=== PATIENT | male | born 1995 | race Caucasian/White ===

== ENCOUNTER 2025-03-14 18:28 | Emergency (ER) | payer OTHER, SELFPAY ==
[2025-03-14 18:33] VITALS: BP 134/79; PULSE 67; RESP 17; TEMP 36.4; O2SAT 96; BMI 28.8
--- NOTE | 2025-03-14 19:07 | XRR_ITS ---
PROCEDURE INFORMATION: Exam: XR Right Foot Exam date and time: 03/14/2025 7:29 PM Age: 29 years old Clinical indication: Injury or trauma; Fall; Blunt trauma; Foot; Right; Additional info: Fall, pain, swelling TECHNIQUE: Imaging protocol: Radiologic exam of the right foot. Views: 3 or more views. COMPARISON: CR (LOW EXM, ) 03/14/2025 7:27 PM FINDINGS: Limitations: Limited assessment of the midfoot. Tarsometatarsal and intertarsal joints are largely obscured due to position. Bones/joints: No acute fracture. No dislocation. Soft tissues: There is mild soft tissue edema anterior and lateral to the ankle. XR/XR foot RT min 3V* [id number] IMPRESSION: No acute findings.
--- NOTE | 2025-03-14 19:07 | XRR_ITS ---
PROCEDURE INFORMATION: Exam: XR Right Ankle Exam date and time: 03/14/2025 7:27 PM Age: 29 years old Clinical indication: Injury or trauma; Fall; Blunt trauma; Ankle; Right; Additional info: Fall, pain, swelling TECHNIQUE: Imaging protocol: Radiologic exam of the right ankle. Views: 3 or more views. COMPARISON: CR (LOW EXM, ) 03/14/2025 7:26 PM FINDINGS: Bones/joints: Ankle mortise alignment is normal. No acute fracture. Soft tissues: There is mild soft tissue edema lateral and anterior to the ankle. XR/XR ankle RT min 3V* [id number] IMPRESSION: No acute fracture.
--- NOTE | 2025-03-14 19:07 | XRR_ITS ---
PROCEDURE INFORMATION: Exam: XR Right Tibia and Fibula Exam date and time: 03/14/2025 7:26 PM Age: 29 years old Clinical indication: Injury or trauma; Fall; Blunt trauma; Lower leg; Right; Additional info: Fall, pain, swelling, prox fibula tenderness TECHNIQUE: Imaging protocol: Radiologic exam of the right tibia and fibula. Views: 2 views. COMPARISON: No relevant prior studies available. FINDINGS: Bones/joints: Alignment of the knee and ankle are normal. No acute fracture. Soft tissues: There is mild soft tissue swelling lateral and anterior to the ankle. XR/XR tibia fibula RT 2V [id number] IMPRESSION: No acute fracture.
--- NOTE | 2025-03-14 19:08 | W.ED.EXTPRO ---
HPI - Extremity Problem General: Chief complaint: Extremity Injury, Lower Stated complaint: R ankle pain Time Seen by Provider: 03/14/25 18:54 History of Present Illness: 29yo male presents with right ankle and foot injury that occurred at approximately 1730. Patient states he jumped off of a tractor landing directly onto the right foot and rolled his right ankle sideways then backwards. Patient states he has not been able to bear weight since the incident. Patient states his pain is 10/10. He has not had anything for pain. He reports a previous injury approximately 1 year ago where he had a hairline fracture in the area. Patient does not wish to have any narcotics. He denies any other injury or concern at this time. Associated symptoms: Deny fever(s) Related Data Allergies Allergy/AdvReac Type Severity Reaction Status Date / Time No Known Allergies Allergy Verified 03/14/25 18:35 Review of Systems Const: Denies: fever(s), chills or body aches GI: Denies: vomiting Musc: Reports: extremity pain (right lower leg), extremity swelling (right ankle) and limited range of motion (right ankle); Denies: deformity Physical Exam Const: COMMON NORMALS: no acute distress, average body habitus, patient oriented x3, healthy appearing and alert GENERAL APPEARANCE: cooperative ORIENTATION/CONSCIOUSNESS: Yes awake OTHER: Patient is laying reclined on the stretcher no acute distress. He is able to give history with no difficulty. He is interactive with exam appropriately. No family at bedside at time of exam HENMT: COMMON NORMALS: normocephalic and atraumatic HEAD & SCALP: normocephalic and atraumatic Neck/C-Spine: COMMON NORMALS: full ROM Chest: CHEST: Yes Symmetrical chest wall rise Resp: COMMON NORMALS: normal respiratory effort EFFORT & INSPECTION: Yes able to speak in complete sentences Back/Pelvis: COMMON NORMALS: thoraco-lumbar ROM normal Extremity: RIGHT LOWER EXTREMITY: Yes lower leg Right lower leg: Yes palpation (tenderness at proximal fibula), Yes foot & digits Right ankle: Yes inspection (localized swelling lateral malleolus) and Yes ROM (decreased ROM) and Yes foot & digits (sensation intact. Tenderness to palpation 5th metatarsal and calcaneus) Neuro: COMMON NORMALS: patient oriented x3 SENSORIUM/ORIENTATION: Yes alert Course Vital Signs: Vital signs: Vital Signs Temperature 97.5 F L 03/14/25 18:33 Pulse Rate 67 03/14/25 18:33 Respiratory Rate 17 03/14/25 18:33 Blood Pressure 134/79 03/14/25 18:33 Pulse Oximetry 96 03/14/25 18:33 Oxygen Delivery Me thod Room Air 03/14/25 18:33 MDM - Extremity (Nontraumatic) Medical Decision Making 29yo male presents with right ankle and foot injury that occurred at approximately 1730. Patient states he jumped off of a tractor landing directly onto the right foot and rolled his right ankle sideways then backwards. Patient states he has not been able to bear weight since the incident. Patient states his pain is 10/10. Patient is nontoxic in appearance. Vital signs are stable. Will proceed with x-ray imaging for further evaluation. No fracture or acute bony abnormality noted on the right tib-fib x-ray, right ankle x-ray, or right foot x-ray. Discussed findings with patient. Advised this is likely a moderate sprain of both the ankle and the foot. Patient did report improvement in his pain after ketorolac injection. Walking boot applied. Patient reports that he does have crutches at home. Discussed acetaminophen/ibuprofen as needed for pain and comfort. Discussed range of motion exercises of the foot and ankle to keep mobility. Discussed rest, ice, and elevation. Recommend he follow-up with primary care in about 1 week for recheck, sooner if needed. Return precautions provided. Patient states understanding and has no further questions or concerns at this time. Medical Records I reviewed the patient's medical records. Lab Data Radiology Impressions Ankle X-Ray 03/14/25 19:07 IMPRESSION: No acute fracture. Foot X-Ray 03/14/25 19:07 IMPRESSION: No acute findings. Tibia/Fibula X-Ray 03/14/25 19:07 IMPRESSION: No acute fracture. All radiology interpretation(s) finalized by discharge Discharge Plan Discharge Patient Disposition: Home Clinical Impression: Moderate right ankle sprain Qualifiers: Encounter type: initial encounter Qualified Code(s): S93.401A - Sprain of unspecified ligament of right ankle, initial encounter Right foot sprain Qualifiers: Encounter type: initial encounter Qualified Code(s): S93.601A - Unspecified sprain of right foot, initial encounter Condition: Stable Discharge Orders: Discharge ED (Routine); Ordered 03/14/25 Ordered By: Ventura Aguilera Discharge Diet: Usual diet Discharge Activity: Increase activity as tolerated Patient Instructions: Ankle Sprain (ED), Opioid Safety, Pain Management Activity Restrictions/Additional Instructions: No fractures noted on the x-rays today. This is likely moderate sprain of the ankle and foot. You have been provided with a walking boot to help protect from further injury and allow you mobility. Please work on range of motion exercises of the ankle and the foot at least twice daily. Complete your ABCs with your great toe acting as the pin Rest, ice, and elevation of the ankle will help with swelling and pain. Apply ice for 15 to 20 minutes at a time Acetaminophen and/ibuprofen as needed for pain and comfort Follow-up with primary care in about a week for recheck, sooner if needed Return to the emergency department if any further injury, rapid worsening symptoms, and as needed Print Language: Latvian Coding Level of Care Code ED Radio Program Checker for Ricardo Londono
[2025-03-14] MEDS: ketorolac 60 mg/2 mL INJ IM (19:20)
== END 2025-03-14 20:58 | disposition home or self-care (01) ==
PROVIDERS: Emergency Provider Nurse Practitioner
DX: S93.401A Sprain of unspecified ligament of right ankle, initial encounter (principal); S93.601A Unspecified sprain of right foot, initial encounter; W17.89XA Other fall from one level to another, initial encounter
CPT/HCPCS: 73590; 73610; 73630; 96372; 99284; J1885